=== PATIENT | female | born 1950 | race Caucasian/White ===

== ENCOUNTER 2018-07-18 08:28 | Emergency (ER) | payer MEDICARE ==
[2018-07-18 08:28] VITALS: BMI 28.6
[2018-07-18 08:37] VITALS: RESP 18; TEMP 98.2
[2018-07-18] MEDS ORDERED: Sodium Chloride 0.9% 1,000 ML IV ONE (08:54)
--- NOTE | 2018-07-18 09:25 | RAD ---
Date of service: 07/18/2018 HISTORY: chest pain COMPARISON: 08/15/2016 TECHNIQUE: Chest PA and lateral FINDINGS: LUNGS: Current inspiration less now than before. No consolidation. PLEURA: No significant pleural effusion identified. No pneumothorax apparent. CARDIOVASCULAR: No aortic atherosclerotic calcification present. Heart size top normal pulmonary vasculature also likely top normal. OSSEOUS STRUCTURES: Thoracic spondylosis. VISUALIZED UPPER ABDOMEN: There is indeterminate sub cm high density in the right upper quadrant at the estimated thoraco lumbar junction of unclear significance is unclear if this is intrinsic or extrinsic. OTHER FINDINGS: None. IMPRESSION: No consolidation. Current lung volumes more shallow than before. Probable top-normal heart size. Indeterminate hyperdensity in the right upper abdomen-no prior studies to assist with where is origin is or if this is even possibly extrinsic to the patient.-artifactual. Correlate clinically.-a KUB may be helpful for further evaluation.
[2018-07-18] MEDS ORDERED: Sodium Chloride 0.9% 1,000 ML ONE (09:26)
[2018-07-18 09:30] LABS: BASO % 0.3 % (0.0-2.0); EOS # 0.4 K/uL (0.0-0.7); EOS % 5.5 % (0.0-4.0); HEMOGLOBIN 12.2 g/dL (11.0-16.0); LYMPH # 1.7 K/uL (1.0-4.3); LYMPH % 24.4 % (20.0-40.0); MEAN CORPUSCULAR HEMOGLOBIN 26.1 pg (27.0-31.0); MEAN CORPUSCULAR HGB CONC 32.5 g/dL (33.0-37.0); MONO # 0.8 K/uL (0.0-0.8); MONO % 11.2 % (0.0-10.0); NEUT # 4.2 K/uL (1.8-7.0); NEUT % 58.6 % (50.0-75.0); NRBC % 0.1 % (0.0-2.0); RBC 4.66 Mil/uL (3.80-5.20); RED CELL DISTRIBUTION WIDTH 13.6 % (11.5-14.5); WHITE BLOOD COUNT 7.2 K/uL (4.8-10.8)
[2018-07-18 09:33] LABS: MEAN CELL VOLUME 80.3 fL (81.0-99.0)
[2018-07-18 09:39] LABS: INR 1.1; PROTHROMBIN TIME 11.9 SECONDS (9.7-12.2); SQUAMOUS EPITHIAL 12 /hpf (0-5); URINE BACTERIA RARE (<OCC); URINE BILIRUBIN NEGATIVE (NEGATIVE); URINE BLOOD NEGATIVE (NEGATIVE); URINE CLARITY Hazy (Clear); URINE COLOR Amber (YELLOW); URINE GLUCOSE (UA) NORMAL (Normal); URINE LEUKOCYTE ESTERASE TRACE Leu/uL (Negative); URINE PROTEIN NEGATIVE (NEGATIVE)
[2018-07-18 09:50] LABS: ALB/GLOB RATIO 1.5 (1.0-2.1); ALBUMIN 4.2 g/dL (3.5-5.0); ALT/SGPT 17 U/L (9-52); AST/SGOT 25 U/L (14-36); BLOOD UREA NITROGEN 19 mg/dL (7-17); CALCIUM 9.1 mg/dl (8.6-10.4); GFR NON-AFRICAN AMERICAN > 60
[2018-07-18 09:59] LABS: B-TYPE NATRIURETIC PEPTIDE 47.3 pg/mL (0-900)
[2018-07-18] MEDS ORDERED: Iodixanol 320 MG/ML 100 ML BOTTLE IV ONE (11:02)
--- NOTE | 2018-07-18 12:11 | C.PDOC ---
History Of Present Illness 68 yo female w/PMHx of HTN, CAD come in for evaluation of Left sided chest wall pain developed for past 5 days. Pt reports, pain is localized, worse with movement, breathing. Pt was seen by PMD and sent to ED for further evaluation. Otherwise, pt denies headache, dizziness, neck pain, CP, SOB, dyspnea, diaphoresis, palpitation, abd. pain, V/D, UTI sx. At present time, pt appears comfortable, not in any apparent distress. Time Seen by Provider: 07/18/18 08:38 Chief Complaint (Nursing): Rib Injury History Per: Patient Past Medical History Reviewed: Historical Data, Nursing Documentation, Vital Signs Vital Signs: Last Vital Signs Temp 98.2 F 07/18/18 08:33 Pulse 67 07/18/18 12:03 Resp 18 07/18/18 08:33 BP 157/76 H 07/18/18 12:03 Pulse Ox 100 07/18/18 12:03 - Medical History PMH: Anxiety, Depression, Fractures (Ankle ORIF), Gastritis, HTN Denies: Chronic Kidney Disease - [facility] Procedures CLOSURE SKIN & SUBCUTANEOUS NEC (11/06/13) LOCAL EXCIS BREAST LES (04/01/14) Family History: States: Unknown Family Hx - Social History Hx Tobacco Use: No Hx Alcohol Use: No Hx Substance Use: No - Immunization History Hx Tetanus Toxoid Vaccination: No Hx Influenza Vaccination: No Hx Pneumococcal Vaccination: No Review Of Systems Except As Marked, All Systems Reviewed And Found Negative. Constitutional: Negative for: Fever, Chills Eyes: Negative for: Vision Change ENT: Negative for: Ear Discharge, Nose Discharge Cardiovascular: Positive for: Other (Left anterior chest wall pain). Negative for: Chest Pain, Palpitations, Orthopnea, Edema, Light Headedness Respiratory: Negative for: Cough, Shortness of Breath, Wheezing Gastrointestinal: Negative for: Nausea, Vomiting, Abdominal Pain Musculoskeletal: Negative for: Neck Pain, Back Pain Skin: Negative for: Rash Neurological: Negative for: Weakness, Numbness, Headache, Dizziness Physical Exam - Physical Exam Appears: Well, Non-toxic, No Acute Distress Skin: Normal Color, Warm, Dry Eye(s): bilateral: PERRL Throat: No Drooling Neck: Trachea Midline, Supple, Other ((-) carotid bruits B/L) Chest: Symmetrical, No Deformity, Tenderness (Left anterior chest wall tenderness overlying 5-7 intercostal spaces just below breast area.), No Ecchymosis, No Subcutaneous Emphysema Cardiovascular: Rhythm Regular, No Murmur, No JVD Respiratory: No Decreased Breath Sounds, No Accessory Muscle Use, No Stridor, No Wheezing Gastrointestinal/Abdominal: Soft, No Tenderness, No Distention, No Guarding Extremity: Normal ROM, No Deformity, No Swelling Neurological/Psych: Oriented x3, Normal Speech ED Course And Treatment - Laboratory Results Result Diagrams: 07/18/18 09:22 07/18/18 09:22 Lab Results: PT 11.9 SECONDS (9.7-12.2) 07/18/18: INR 1.1 07/18/18: APTT 39 SECONDS (21-34) H 07/18/18 09:22 D-Dimer, Quantitative 471 ng/mlDDU (0-243) H 07/18/18:22 Troponin I < 0.0120 ng/mL (0.00-0.120) 07/18/18 09: NT-Pro-B Natriuret Pep 47.3 pg/mL (0-900) 07/18/18 09:22 Total Bilirubin 0.5 mg/dL (0.2-1.3) 07/18/18 09:22 AST 25 U/L (14-36) 07/18/18 09:22 ALT 17 U/L (9-52) 07/18/18 09:22 Alkaline Phosphatase 56 U/L (38-126) 07/18/18 09:22 Total Protein 7.0 g/dL (6.3-8.3) 07/18/18 09:22 Albumin 4.2 g/dL (3.5-5.0) 07/18/18 09:22 Globulin 2.9 gm/dL (2.2-3.9) 07/18/18 09:22 Albumin/Globulin Ratio 1.5 (1.0-2.1) 07/18/18 09:22 Urine Color Marie (YELLOW) 07/18/18: Urine Clarity Hazy (Clear) 07/18/18: Urine pH 5.0 (5.0-8.0) 07/18/18 09: Ur Specific [place] 1.027 (1.003-1.030) 07/18/18 09:22 Urine Protein Negative mg/dL (NEGATIVE) 07/18/18 09:22 Urine Glucose (UA) Normal mg/dL (Normal) 07/18/18 09:22 Urine Ketones Trace mg/dL (NEGATIVE) 07/18/18 09:22 Urine Blood Negative (NEGATIVE) 07/18/18 09:22 Urine Nitrate Negative (NEGATIVE) 07/18/18 09:22 Urine Bilirubin Negative (NEGATIVE) 07/18/18 09:22 Urine Urobilinogen 2.0 mg/dL (0.2-1.0) H 07/18/18 09:22 Ur Leukocyte Esterase Trace Harris/uL (Negative) 07/18/18 09:22 Urine WBC (Auto) 2 /hpf (0-5) 07/18/18 09:22 Urine RBC (Auto) 2 /hpf (0-3) 07/18/18 09:22 Ur Squamous Epith Cells 12 /hpf (0-5) H 07/18/18 09:22 Urine Bacteria Rare (<OCC) 07/18/18 09:22 Lab Interpretation: No Acute Changes ECG: Interpreted By Me, Viewed By Me (and ED attending) Interpretation Of ECG: SR@65/min, no acute T wave or ST-T changes O2 Sat by Pulse Oximetry: 100 Pulse Ox Interpretation: Normal - Other Rad CXR X-Ray: Read By Radiologist Interpretation: IMPRESSION: No consolidation. Current lung volumes more shallow than before. Probable top-normal heart size. Indeterminate hyperdensity in the right upper abdomen-no prior studies to assist with where is origin is or if this is even possibly extrinsic to the patient.-artifactual. Correlate clinically.-a KUB may be helpful for further evaluation. - CT Scan/US CTA chest Other Rad Studies (CT/US): Radiology Report Reviewed CT/US Interpretation: Creator : Sindy Xavier. Dictator : Niurka Espinoza. Bingo Caller : Diamond Setter : Niurka Espinoza. Approver2 : Report Date : 07/18/2018 11:38:18. My Comment : . This report is currently processing and HAS NOT BEEN OFFICIALLY SIGNED BY THE PHYSICIAN - ESTIMATED TIME OF APPROVAL IS 07/18/2018 12:50. Date of service: 07/18/2018. PROCEDURE: CT Chest with contrast (Pulmonary Angiogram). HISTORY: chest pain. COMPARISON: None available. TECHNIQUE: Axial computed tomography images were obtained of the chest in the pulmonary arterial phase of enhancement. Coronal and sagittal reformatted images were created and reviewed. Intravenous contrast dose: 100 mL of Visipaque 320. Radiation dose: Total exam DLP = 376.11 mGy-cm. This CT exam was performed using one or more of the following dose reduction techniques: Automated exposure control, adjustment of the mA and/or kV according to patient size, and/or use of iterative reconstruction technique. FINDINGS: PULMONARY ARTERIES: No central pulmonary emboli noted. The 1 to 2 mm filling defects compatible with tiny emboli in the subsegmental pulmonary arterial branches to each lower lobe series 2, image 103. also noted on axial series 3, image 62. Chronicity of this appearance is unknown. AORTA: No acute findings. No thoracic aortic aneurysm. No aortic atherosclerotic calcification or mural plaque present. LUNGS: A 3 mm solid-appearing nodule left lung base 4 image 68 noted.; Coronal series 601, image 66. Bilateral subpleural small blebs are noted. No complicating pneumothorax. PLEURAL SPACES: Unremarkable. No effusion or pneumothorax. HEART: Unremarkable. No cardiomegaly. No significant pericardial effusion. LYMPH NODES: No lymphadenopathy. BONES, CHEST WALL: Unremarkable. No fracture or destructive lesion. OTHER FINDINGS: Multiple left and right hepatic hypodensities resembling liver cysts. The largest is exophytic off the right hepatic lobe measuring 2.6 cm in size. Post cholecystectomy surgical clips noted. IMPRESSION: No central pulmonary emboli. Probable minute peripheral bibasilar subsegmental pulmonary arterial branch pulmonary emboli of unknown chronicity. Multiple left and right hepatic masses leave most compatible with benign liver cyst-the largest exophytic off the right hepatic lobe measuring up to 2.6 cm. Can be confirmed with a right upper quadrant ultrasound attention to the liver as needed. CT A/P Other Rad Studies (CT/US): Radiology Report Reviewed CT/US Interpretation: Creator : Sindy Xavier. Dictator : Niurka Espinoza. Bingo Caller : Diamond Setter : Niurka Espinoza. Approver2 : Report Date : 07/18/2018 15:31:18. My Comment : . Date of service: 07/18/2018. PROCEDURE: CT Abdomen and Pelvis with contrast. HISTORY: liver masses. COMPARISON: None. TECHNIQUE: Contrast dose: Radiation dose: Total exam DLP = 814.49 mGy-cm. This CT exam was performed using one or more of the following dose reduction techniques: Automated exposure control, adjustment of the mA and/or kV according to patient size, and/or use of iterative reconstruction technique. FINDINGS: LOWER THORAX: Unremarkable. LIVER: The 10+ liver lesions all hypodense are hree noted involve the left and right hepatic lobes largest being exophytic off the right hepatic lobe measuring approximately 2.8 to 2.9 cm. Current Hounsfield units are compatible with a benign cysts. No suspicious enhancement appreciated. GALLBLADDER AND BILE DUCTS: Post cholecystectomy clips in gallbladder fossa. PANCREAS: Unremarkable. No gross lesion or ductal dilatation. SPLEEN: Unremarkable. ADRENALS: Unremarkable. No mass. KIDNEYS AND URETERS: Unremarkable. No hydronephrosis. No solid mass. VASCULATURE: . No aortic aneurysm. There is aortic atherosclerotic calcification or mural plaque present. BOWEL: Unremarkable. No obstruction. No gross mural thickening. APPENDIX: No CT findings seen to suggest acute appendicitis. PERITONEUM: Unremarkable. No free fluid. No free air. LYMPH NODES: Unremarkable. No enlarged lymph nodes. BLADDER: Unremarkable. REPRODUCTIVE: Uterus within normal limits for patient's age. Probable small bilateral benign adnexal ovarian follicular type cysts age is noted. BONES: No acute fracture. Degenerative changes thoracic and lumbar spine. OTHER FINDINGS: None. IMPRESSION: Reproduced on this CT are the multiple left and right intrahepatic hypodense circumscribed masses whose appearances are compatible with liver cysts. The largest measures up to 2.8 cm and appears partially exophytic off the right hepatic lobe. For this CT exam, the largest liver exophytic mass has Hounsfield units compatible with a simple hepatic cyst. Status post cholecystectomy. No suspect dilated ducts. Atherosclerotic vascular ca lcifications present. No aneurysm seen Progress Note: Pt was OBS in ED for 3 hours and reports improvement in sx. Case discussed with , CTA hest review, request CT A/P now. On re-eval, pt is aferile, hemodynamicaly stable. Non-toxic. PulsEOx 100% RA. Neck: supple, (-) JVD, (-) carotid bruits B/L. Lungs: CTA B/L, BS equal B/L. CVS: (+)S1S2, reg, (-) murmur. ABd: benign, (-) guarding, (-) rebound, (-) localized tenderness. Back: (-) CVA tenderness. Neurologicaly intact. Blood work review and appears normal, no acute abnormalities noted. CTA chest (-) evidence of PE. CT A/P review (+) multiple left and right intrahepatic hypodense circumscribed masses whose appearances are compatible with liver cysts. Case re-discussed with and discharge w/outpt f/u recommend. Results review and discussed with pt, copies given. Pt advised to F/U with PMD, GI in 2-3 days for re-eval. Return to ED if any worsening or new changes. Disposition Counseled Patient/Family Regarding: Studies Performed, Diagnosis, Need For Followup - Disposition Referrals: Thai Pena MD [Medical Doctor] - Disposition: HOME/ ROUTINE Disposition Time: 16:22 Condition: STABLE Additional Instructions: Follow up with PMD in 2-3 days for re-evaluation and further treatment Return to ED if any worsening or new changes. Instructions: Costochondritis, Cysts in the Liver Forms: [employer] ([place]) - Clinical Impression Clinical Impression: Chest wall pain, Liver cyst
--- NOTE | 2018-07-18 12:49 | CT ---
Date of service: 07/18/2018 PROCEDURE: CT Chest with contrast (Pulmonary Angiogram) HISTORY: chest pain COMPARISON: None available. TECHNIQUE: Axial computed tomography images were obtained of the chest in the pulmonary arterial phase of enhancement. Coronal and sagittal reformatted images were created and reviewed. Intravenous contrast dose: 100 mL of Visipaque 320 Radiation dose: Total exam DLP = 376.11 mGy-cm. This CT exam was performed using one or more of the following dose reduction techniques: Automated exposure control, adjustment of the mA and/or kV according to patient size, and/or use of iterative reconstruction technique. FINDINGS: PULMONARY ARTERIES: No central pulmonary emboli noted. The 1 to 2 mm filling defects compatible with tiny emboli in the subsegmental pulmonary arterial branches to each lower lobe series 2, image 103. also noted on axial series 3, image 62 Chronicity of this appearance is unknown. AORTA: No acute findings. No thoracic aortic aneurysm. No aortic atherosclerotic calcification or mural plaque present. LUNGS: A 3 mm solid-appearing nodule left lung base 4 image 68 noted.; Coronal series 601, image 66 Bilateral subpleural small blebs are noted. No complicating pneumothorax. PLEURAL SPACES: Unremarkable. No effusion or pneumothorax. HEART: Unremarkable. No cardiomegaly. No significant pericardial effusion. LYMPH NODES: No lymphadenopathy. BONES, CHEST WALL: Unremarkable. No fracture or destructive lesion OTHER FINDINGS: Multiple left and right hepatic hypodensities resembling liver cysts. The largest is exophytic off the right hepatic lobe measuring 2.6 cm in size. Post cholecystectomy surgical clips noted IMPRESSION: No central pulmonary emboli. Probable minute peripheral bibasilar subsegmental pulmonary arterial branch pulmonary emboli of unknown chronicity. Multiple left and right hepatic masses leave most compatible with benign liver cyst-the largest exophytic off the right hepatic lobe measuring up to 2.6 cm. Can be confirmed with a right upper quadrant ultrasound attention to the liver as needed.
[2018-07-18] MEDS ORDERED: Iohexol 240 (50 ml) PO ONE (13:00)
[2018-07-18] MEDS ORDERED: Iohexol 240 (50 ml) ONE (13:16)
--- NOTE | 2018-07-18 16:01 | CT ---
Date of service: 07/18/2018 PROCEDURE: CT Abdomen and Pelvis with contrast HISTORY: liver masses COMPARISON: None. TECHNIQUE: Contrast dose: Radiation dose: Total exam DLP = 814.49 mGy-cm. This CT exam was performed using one or more of the following dose reduction techniques: Automated exposure control, adjustment of the mA and/or kV according to patient size, and/or use of iterative reconstruction technique. FINDINGS: LOWER THORAX: Unremarkable. LIVER: The 10+ liver lesions all hypodense are hree noted involve the left and right hepatic lobes largest being exophytic off the right hepatic lobe measuring approximately 2.8 to 2.9 cm. Current Hounsfield units are compatible with a benign cysts. No suspicious enhancement appreciated. GALLBLADDER AND BILE DUCTS: Post cholecystectomy clips in gallbladder fossa PANCREAS: Unremarkable. No gross lesion or ductal dilatation. SPLEEN: Unremarkable. ADRENALS: Unremarkable. No mass. KIDNEYS AND URETERS: Unremarkable. No hydronephrosis. No solid mass. VASCULATURE: . No aortic aneurysm. There is aortic atherosclerotic calcification or mural plaque present. BOWEL: Unremarkable. No obstruction. No gross mural thickening. APPENDIX: No CT findings seen to suggest acute appendicitis. PERITONEUM: Unremarkable. No free fluid. No free air. LYMPH NODES: Unremarkable. No enlarged lymph nodes. BLADDER: Unremarkable. REPRODUCTIVE: Uterus within normal limits for patient's age. Probable small bilateral benign adnexal ovarian follicular type cysts age is noted. BONES: No acute fracture. Degenerative changes thoracic and lumbar spine OTHER FINDINGS: None. IMPRESSION: Reproduced on this CT are the multiple left and right intrahepatic hypodense circumscribed masses whose appearances are compatible with liver cysts. The largest measures up to 2.8 cm and appears partially exophytic off the right hepatic lobe. For this CT exam, the largest liver exophytic mass has Hounsfield units compatible with a simple hepatic cyst. Status post cholecystectomy. No suspect dilated ducts. Atherosclerotic vascular calcifications present. No aneurysm seen
[2018-07-18 16:03] VITALS: BP 180/71; PULSE 93
[2018-07-18 16:24] VITALS: O2SAT 100
--- NOTE | 2018-07-19 14:18 | CARD ---
APPROVED REPORT Date of service: 07/18/2018 EKG Measurement Heart [id number] <Conclusion> Normal sinus rhythm Minimal voltage criteria for LVH, may be normal variant Cannot rule out Anterior infarct, age undetermined Abnormal ECG
== END 2018-07-18 17:05 | disposition home or self-care (01) ==
LOC: C.ER 08:28
DX: R07.89 Other chest pain (principal); K76.89 Other specified diseases of liver; I25.10 Atherosclerotic heart disease of native coronary artery without angina pectoris; I10 Essential (primary) hypertension
CPT/HCPCS: 71046; 71275; 74176; 80053; 81001; 83880; 84484; 85025; 85378; 85610; 85730; 93005; 96361; 96374; 99285; J1885; J7030; Q9967